=== PATIENT | female | born 1985 | race Caucasian/White ===

== ENCOUNTER 2021-04-23 16:42 | Emergency (ER) | payer MEDICARE ==
[2021-04-23 20:29] LABS: BASOPHIL 0.2 % (0-2); EOSINOPHIL 0.2 % (0-5); HGB 15.1 g/dl (12.5-16.0); MCH 29.3 pg (25.0-31.0); MCHC 32.8 g/dL (32.0-36.0); MCV 89.3 fL (78.0-100.0); MONOCYTE 3.7 % (0-12); MPV 10.6 fL (6.0-9.5); NEUTROPHIL 75.7 % (41-80); NRBC 0; PLT 260 K/uL (150-400); RBC 5.15 M/uL (4.20-5.40); WBC 9.7 K/uL (4.0-10.5)
[2021-04-23 20:39] LABS: BILIRUBIN NEGATIVE (NEGATIVE); BLOOD NEGATIVE Ery/uL (NEGATIVE); CLARITY CLEAR (CLEAR); COLOR YELLOW (YELLOW); GLUCOSE (U) NORMAL (NORMAL); LEUKOCYTES TRACE Leu/uL (NEGATIVE); NITRITE NEGATIVE (NEGATIVE); PROTEIN NEGATIVE (NEGATIVE); SPECIFIC GRAVITY <=1.005 (1.001-1.030); UROBILINOGEN 0.2 mg/dL (0.2-1.0)
[2021-04-23 20:51] LABS: BUN/CREAT RATIO (CALC) 16.4 RATIO; CREATININE 0.55 mg/dL (0.51-0.95); POTASSIUM 4.1 mmol/L (3.5-5.1)
[2021-04-23 20:51] LABS: BACTERIA 1+
[2021-04-23] MEDS ORDERED: BACLOFEN 10MG T10 MG PO (21:11)
[2021-04-23] MEDS ORDERED: ZOFRAN4 M1 PO (21:11)
== END 2021-04-23 21:28 | disposition home or self-care (01) ==
LOC: FER 16:42
PROVIDERS: Nurse Practitioner Family
DX: G43.909 Migraine, unspecified, not intractable, without status migrainosus (principal); U07.1 COVID-19; F17.210 Nicotine dependence, cigarettes, uncomplicated; Z88.0 Allergy status to penicillin
CPT/HCPCS: 36415; 80048; 81001; 85025; J1100; J1200; J1885; J2405; J7030